=== PATIENT | male | born 1995 | race Caucasian/White ===

== ENCOUNTER 2017-04-10 17:39 | Emergency (ER) | payer SELFPAY ==
[2017-04-10 18:24] VITALS: BP 128/74
--- NOTE | 2017-04-10 19:10 | ER Document Report ---
ED Extremity Problem, Lower - General Chief Complaint: Foot Injury Stated Complaint: FEET PAIN Time Seen by Provider: 04/10/17 18:46 Mode of Arrival: Ambulatory Information source: Patient, [facility] Records Notes: This 22-year-old male patient comes emergency room complaining of pain to his left medial foot and ankle. About 6 days ago he was riding a skateboard which fell out from under him and he fell several steps landing flat on his heel. He has continued to work every day but reports the discomfort seems to be getting worse. TRAVEL OUTSIDE OF THE [place] IN LAST 30 DAYS: No - Related Data Allergies/Adverse Reactions: bee venom protein (honey bee) Allergy (Verified 04/10/17 18:22) brompheniramine maleate [From Dimetapp] Allergy (Verified 04/10/17 18:22) coconut Allergy (Verified 04/10/17 18:22) dextromethorphan HBr [From Dimetapp] Allergy (Verified 04/10/17 18:22) phenylpropanolamine HCl [From Dimetapp] Allergy (Verified 04/10/17 18:22) pseudoephedrine HCl [From Dimetapp] Allergy (Verified 04/10/17 18:22) Past Medical History - General Information source: Patient, [facility] Records - Social History Smoking Status: Current Every Day Smoker Cigarette use (# per day): Yes Chew tobacco use (# tins/day): No Smoking Education Provided: No Frequency of alcohol use: None Drug Abuse: None Lives with: Friend Family History: Reviewed & Not Pertinent Patient has suicidal ideation: No Patient has homicidal ideation: No - Medical History Medical History: Negative Surgical Hx: Negative - Immunizations Hx Diphtheria, Pertussis, Tetanus Vaccination: Yes - unknown Review of Systems - Review of Systems Constitutional: No symptoms reported EENT: No symptoms reported Cardiovascular: No symptoms reported Respiratory: No symptoms reported Gastrointestinal: No symptoms reported Genitourinary: No symptoms reported Musculoskeletal: See HPI Skin: No symptoms reported Hematologic/Lymphatic: No symptoms reported Neurological/Psychological: No symptoms reported Physical Exam - Vital signs Vitals: Temp Pulse Resp BP Pulse Ox 97.8 F 69 14 128/74 H 99 04/10/17 18:13 04/10/17 18:13 04/10/17 18:13 04/10/17 18:13 04/10/17 18:13 Interpretation: Normal - General General appearance: Appears well, Alert In distress: None - HEENT Head: Normocephalic, Atraumatic Eyes: Normal Pupils: PERRL Neck: Normal - Respiratory Respiratory status: No respiratory distress - Cardiovascular Rhythm: Regular - Abdominal Inspection: Normal - Back Back: Normal - Extremities General upper extremity: Normal inspection General lower extremity: Other - The left medial calcaneal region and medial talar area is quite tender to palpate. There is some tenderness over the cuboid on the dorsal lateral aspect. - Neurological Neuro grossly intact: Yes - Psychological Associated symptoms: Normal affect, Normal mood - Skin Skin Temperature: Warm Skin Moisture: Dry Skin Color: Normal Course - Vital Signs Vital signs: Temp Pulse Resp BP Pulse Ox 97.8 F 69 14 128/74 H 99 04/10/17 18:13 04/10/17 18:13 04/10/17 18:13 04/10/17 18:13 04/10/17 18:13 Discharge - Discharge Clinical Impression: Medial ankle sprain Qualifiers: Encounter type: initial encounter Laterality: left Qualified Code(s): S93.422A - Sprain of deltoid ligament of left ankle, initial encounter Condition: Stable Disposition: HOME, SELF-CARE Additional Instructions: Use a Velcro type foot and ankle splint to provide support and stability for your foot and ankle when you are up walking. Try to limit walking as much as possible. Take 2 Aleve every 12 hours or 3 Advil every 8 hours for inflammation discomfort if needed. Follow-up with a local medical doctor, sports medicine doctor, or orthopedic surgeon if your foot and ankle discomfort does not improve over the next week. RETURN TO THE EMERGENCY ROOM IF ANY NEW OR WORSENING SYMPTOMS.
--- NOTE | 2017-04-10 19:21 | RADIOLOGY REPORT (SQ) ---
EXAM DESCRIPTION: FOOT LEFT COMPLETE COMPLETED DATE/TIME: 04/10/2017 7:09 pm REASON FOR STUDY: medial foot and ankle pain after a fall COMPARISON: None. NUMBER OF VIEWS: Three views. TECHNIQUE: AP, lateral and oblique radiographic images acquired of the left foot. LIMITATIONS: None. FINDINGS: MINERALIZATION: Normal. BONES: No acute fracture or dislocation. No worrisome bone lesions. JOINTS: No effusions. SOFT TISSUES: No soft tissue swelling. No foreign body. OTHER: No other significant finding. IMPRESSION: NEGATIVE STUDY OF THE LEFT FOOT. NO RADIOGRAPHIC EVIDENCE OF ACUTE INJURY. TECHNICAL DOCUMENTATION: JOB ID: [id number] [employer]- All Rights Reserved
--- NOTE | 2017-04-10 19:22 | RADIOLOGY REPORT (SQ) ---
EXAM DESCRIPTION: ANKLE LEFT COMPLETE COMPLETED DATE/TIME: 04/10/2017 7:09 pm REASON FOR STUDY: medial foot and ankle pain after a fall COMPARISON: None. NUMBER OF VIEWS: Three views. TECHNIQUE: AP, lateral, and oblique radiographic images acquired of the left ankle. LIMITATIONS: None. FINDINGS: MINERALIZATION: Normal. BONES: No acute fracture or dislocation. No worrisome bone lesions. JOINTS: No effusions. SOFT TISSUES: No soft tissue swelling. No foreign body. OTHER: No other significant finding. IMPRESSION: NEGATIVE STUDY OF THE LEFT ANKLE. NO RADIOGRAPHIC EVIDENCE OF ACUTE INJURY. TECHNICAL DOCUMENTATION: JOB ID: [id number] [employer]- All Rights Reserved
== END 2017-04-10 19:55 | disposition home or self-care (01) ==
LOC: ER 17:39
DX: S93.422A Sprain of deltoid ligament of left ankle, initial encounter (principal); M79.672 Pain in left foot; M25.572 Pain in left ankle and joints of left foot; W10.9XXA Fall (on) (from) unspecified stairs and steps, initial encounter; F17.200 Nicotine dependence, unspecified, uncomplicated
CPT/HCPCS: 99283

== ENCOUNTER 2017-10-04 20:37 | Emergency (ER) | payer SELFPAY ==
--- NOTE | 2017-10-04 21:30 | ER Document Report ---
HPI - HPI Pain Level: 4 Context: Patient is a 22-year-old male who presents emergency department with concerns for parasite infection. Patient states that he had a red Gatorade with bugs and it 3 weeks ago and then tonight he got home from work took off his work boots and he thought he saw warm under his skin on his right foot. He states that it is gone now. He denies any previous history of infection, injury to this foot. Patient does admit to social marijuana use but denies any hallucinogen use. Admits to pack-a-day smoker and social alcohol use. - REPRODUCTIVE Reproductive: DENIES: : Past Medical History - Social History Smoking Status: Current Every Day Smoker Drug Abuse: Marijuana Family History: Reviewed & Not Pertinent Renal/ Medical History: Denies: Hx Peritoneal Dialysis - Immunizations Hx Diphtheria, Pertussis, Tetanus Vaccination: Yes - unknown Vertical Provider Document - CONSTITUTIONAL Agree With Documented VS: Yes Notes: PHYSICAL EXAM GENERAL: Alert, interacts well. LUNGS: Clear to auscultation bilaterally, no wheezes, rales, or rhonchi. No respiratory distress. HEART: Regular rate and rhythm. No murmurs, gallops, or rubs. ABDOMEN: Soft, nondistended, nontender. No guarding, rebound, or rigidity.. Bowel sounds present in all 4 quadrants. EXTREMITIES: Moves all 4 extremities spontaneously. No edema, radial and dorsalis pedis pulses 2/4 bilaterally. No cyanosis. NEUROLOGICAL: Alert and oriented x4. Normal speech. PSYCH: Normal affect, normal mood. SKIN: Warm, dry, normal turgor. No rashes or multiple small abrasions noted on bilateral lower extremities consistent with chronic picking - INFECTION CONTROL TRAVEL OUTSIDE OF THE [place] IN LAST 30 DAYS: No - RESPIRATORY O2 Sat by Pulse Oximetry: 98 Course - Re-evaluation Re-evalutation: 10/05/17 02:02 Patient presents with vague complaint that did not appear to be concerning for any acute life-threatening pathology. Vitals are within normal limits at triage and at time of discharge. Physical examination is unremarkable. Patient has tolerated oral intake without difficulty. Patient was not noted to be in distress at any point during their ER visit. At this time, based on the reassuring evaluation, I do not suspect a septic joint, gout flare, dislocation , or fracture on exam. Will discharge with return precautions and follow-up recommendations. Verbal discharge instructions given a the bedside and opportunity for questions given. Medication warnings reviewed. Patient is in agreement with this plan and has verbalized understanding of return precautions and the need for primary care follow-up in the next 24-72 hours. - Vital Signs Vital signs: Temp Pulse Resp BP Pulse Ox 98.6 F 96 18 149/76 H 98 10/04/17 20:51 10/04/17 20:51 10/04/17 20:51 10/04/17 20:51 10/04/17 20:51 Discharge - Discharge Clinical Impression: Well adult health check Condition: Good Disposition: HOME, SELF-CARE Additional Instructions: There is no evidence of a parasite noted on your exam today. If you notice any symptoms with fever, chills, swelling, pain, not able to tolerate food or liquids, persistent diarrhea, abdominal pain please follow-up with your primary care doctor.
[2017-10-04 21:54] VITALS: BP 134/82
== END 2017-10-04 21:50 | disposition home or self-care (01) ==
LOC: ER 20:37
DX: Z04.8 Encounter for examination and observation for other specified reasons (principal); F17.200 Nicotine dependence, unspecified, uncomplicated; F12.10 Cannabis abuse, uncomplicated; S80.812A Abrasion, left lower leg, initial encounter; S80.811A Abrasion, right lower leg, initial encounter; X58.XXXA Exposure to other specified factors, initial encounter
CPT/HCPCS: 99283